=== PATIENT | female | born 1970 | race Caucasian/White ===

== ENCOUNTER 2020-04-16 13:50 | Inpatient (IN) ==
[2020-04-16 14:41] LABS: Basophils % 0.2 %; Eosinophils % 0.6 %; Hematocrit 42.2 % (35.3-44.9); Hemoglobin 13.3 g/dL (11.5-15.4); Immature Granulocytes % 0.6 % (0-4); Lymphocytes # 1.1 K/mcL (0.6-4.6); Lymphocytes % 23.1 %; Mean Corpuscular HGB Conc 31.5 g/dL (31.6-35.5); Mean Corpuscular Volume 85.6 fL (83.0-100.0); Mean Platelet Volume 10.3 fL (9.4-12.4); Monocytes # 0.5 K/mcL (0.0-1.3); Monocytes % 9.3 %; Neutrophils # 3.3 K/mcL (1.6-8.9); Platelet Count 241 K/mcL (140-400); Red Blood Count 4.93 M/mcL (3.82-4.97); Red Cell Distribution Width 16.2 % (11.5-14.5); Segmented Neutrophils % 66.2 %; White Blood Count 4.9 K/mcL (4.3-11.1)
[2020-04-16] MEDS ORDERED: Dexamethasone Sodium Phos/PF 10 MG/ML VIAL IVP ONE (14:45)
[2020-04-16 14:48] LABS: Prothrombin Time 11.9 Seconds (9.4-12.1)
[2020-04-16 14:50] LABS: Activated Partial Thrombo Time 26.2 Seconds (26.0-36.0)
[2020-04-16 15:03] LABS: Alanine Aminotransferase 20 Units/L (7-52); Albumin 4.4 g/dL (3.5-5.7); Albumin/Globulin Ratio 1.4 (1.1-2.2); Alkaline Phosphatase 83 Units/L (34-104); Aspartate Amino Transferase 17 Units/L (13-39); BUN/Creatinine Ratio 12 (6-26); Bilirubin,Direct 0.1 mg/dL (0.0-0.2); Bilirubin,Indirect 0.5 mg/dL (0.0-1.0); Bilirubin,Total 0.6 mg/dL (0.3-1.0); Blood Urea Nitrogen 8 mg/dL (6-20); C-Reactive Protein 31 mg/L (Less than 10); Calcium 9.1 mg/dL (8.6-10.3); Carbon Dioxide 30 mEq/L (23-29); Chloride 99 mEq/L (98-107); Globulin 3.2 g/dL (2.4-3.5); Glucose 92 mg/dL (70-105); Lactate Dehydrogenase 173 Units/L (140-271); Magnesium 2.4 mg/dL (1.6-2.6); Osmolality,Calculated 284 (280-300); Phosphorous 2.6 mg/dL (2.7-4.5); Potassium 3.1 mEq/L (3.5-5.1); Sodium 138 mEq/L (136-145); Total Protein 7.6 g/dL (6.4-8.9); Troponin I < 0.03 ng/mL (< 0.04); eGFR For African Americans > 60 (> 60); eGFR For Non-African Americans > 60 (> 60)
[2020-04-16 15:21] LABS: Ferritin 85 ng/mL (10-120)
[2020-04-16] MEDS ORDERED: Ondansetron 4 MG/2 ML VIAL IVP PRN (15:28)
[2020-04-16] MEDS ORDERED: Naloxone 0.4 MG/ML INJ IVP PRN (15:28)
[2020-04-16] MEDS: Furosemide 40 MG/4 ML VIAL IVP SCH (20:50)
[2020-04-16] MEDS: Ipratropium 1 PUFF INHALER IH SCH (21:55)
[2020-04-16] MEDS ORDERED: Melatonin 3 MG TABLET PO SCH (22:45)
[2020-04-17] MEDS: Ipratropium 1 PUFF INHALER IH SCH ×4 (04:11→21:27)
[2020-04-17 05:23] LABS: VBG HCO3 27 mEq/L (21-27); VBG PCO2 38 mmHg (41-51); VBG PH 7.46 pH Units (7.32-7.42); VBG PO2 128 mmHg (25-50)
[2020-04-17 05:25] LABS: Basophils % 0.2 %; Lymphocytes # 0.8 K/mcL (0.6-4.6); Lymphocytes % 20.1 %; Mean Corpuscular HGB Conc 31.7 g/dL (31.6-35.5); Mean Corpuscular Hemoglobin 27.1 pg (28.0-33.3); Mean Corpuscular Volume 85.4 fL (83.0-100.0); Mean Platelet Volume 10.8 fL (9.4-12.4); Monocytes # 0.3 K/mcL (0.0-1.3); Monocytes % 6.1 %; Platelet Count 275 K/mcL (140-400); Red Cell Distribution Width 15.9 % (11.5-14.5); Segmented Neutrophils % 72.6 %; White Blood Count 4.1 K/mcL (4.3-11.1)
[2020-04-17 05:40] LABS: Fibrinogen 384 mg/dL (169-393)
[2020-04-17 05:42] LABS: D-Dimer 831 ng/mLFEU (0-500)
[2020-04-17 05:44] LABS: BUN/Creatinine Ratio 16 (6-26); Blood Urea Nitrogen 11 mg/dL (6-20); Calcium 9.6 mg/dL (8.6-10.3); Carbon Dioxide 25 mEq/L (23-29); Chloride 99 mEq/L (98-107); Glucose 142 mg/dL (70-105); Magnesium 2.3 mg/dL (1.6-2.6); Osmolality,Calculated 284 (280-300); Potassium 3.4 mEq/L (3.5-5.1); Sodium 136 mEq/L (136-145); eGFR For African Americans > 60 (> 60); eGFR For Non-African Americans > 60 (> 60)
[2020-04-17] MEDS: *HR* Enoxaparin 40 MG/0.4 ML SYRINGE SQ SCH (05:49)
[2020-04-17] MEDS: Acetaminophen 325 MG TABLET PO PRN ×2 (05:49→17:43)
[2020-04-17] MEDS ORDERED: Dexamethasone Sodium Phos/PF 10 MG/ML VIAL IVP SCH (09:00)
[2020-04-17] MEDS: Dexamethasone Sodium Phos/PF 10 MG/ML VIAL IVP SCH (09:24)
[2020-04-17] MEDS: Spironolactone 25 MG TABLET PO SCH (09:24)
[2020-04-17] MEDS: Furosemide 40 MG/4 ML VIAL IVP SCH ×2 (09:24→20:09)
[2020-04-17] MEDS ORDERED: Levothyroxine Sodium 100 MCG VIAL IVP ONE (12:43)
[2020-04-17] MEDS: Pregabalin 50 MG CAPSULE PO SCH (20:09)
[2020-04-18] MEDS: Ipratropium 1 PUFF INHALER IH SCH ×4 (03:51→21:47)
[2020-04-18] MEDS: Acetaminophen 325 MG TABLET PO PRN (05:10)
[2020-04-18 05:17] LABS: Basophils % 0.3 %; Hematocrit 43.7 % (35.3-44.9); Hemoglobin 13.4 g/dL (11.5-15.4); Immature Granulocytes % 0.7 % (0-4); Lymphocytes # 1.4 K/mcL (0.6-4.6); Lymphocytes % 19.4 %; Mean Corpuscular HGB Conc 30.7 g/dL (31.6-35.5); Mean Corpuscular Hemoglobin 26.5 pg (28.0-33.3); Mean Corpuscular Volume 86.5 fL (83.0-100.0); Mean Platelet Volume 10.4 fL (9.4-12.4); Monocytes # 0.5 K/mcL (0.0-1.3); Monocytes % 7.2 %; Neutrophils # 5.3 K/mcL (1.6-8.9); Platelet Count 321 K/mcL (140-400); Red Blood Count 5.05 M/mcL (3.82-4.97); Red Cell Distribution Width 16.3 % (11.5-14.5); Segmented Neutrophils % 72.4 %
[2020-04-18 05:18] LABS: Fibrinogen 347 mg/dL (169-393)
[2020-04-18 05:19] LABS: White Blood Count 7.3 K/mcL (4.3-11.1)
[2020-04-18 05:21] LABS: D-Dimer 601 ng/mLFEU (0-500)
[2020-04-18 05:39] LABS: BUN/Creatinine Ratio 27 (6-26); Blood Urea Nitrogen 22 mg/dL (6-20); Calcium 9.6 mg/dL (8.6-10.3); Carbon Dioxide 28 mEq/L (23-29); Chloride 101 mEq/L (98-107); Glucose 128 mg/dL (70-105); Magnesium 2.4 mg/dL (1.6-2.6); Osmolality,Calculated 295 (280-300); Potassium 3.4 mEq/L (3.5-5.1); Sodium 140 mEq/L (136-145); eGFR For African Americans > 60 (> 60); eGFR For Non-African Americans > 60 (> 60)
[2020-04-18 05:50] LABS: Thyroid Stimulating Hormone 37.606 mcIU/mL (0.340-5.600)
[2020-04-18 05:52] LABS: Triiodothyronine (T3) Free 2.41 pg/mL (2.50-3.90)
[2020-04-18] MEDS: *HR* Enoxaparin 40 MG/0.4 ML SYRINGE SQ SCH (09:18)
[2020-04-18] MEDS: Pregabalin 50 MG CAPSULE PO SCH ×2 (09:19→20:36)
[2020-04-18] MEDS: Furosemide 40 MG/4 ML VIAL IVP SCH ×2 (09:19→20:37)
[2020-04-18] MEDS: Spironolactone 25 MG TABLET PO SCH (09:19)
[2020-04-18] MEDS: Dexamethasone Sodium Phos/PF 10 MG/ML VIAL IVP SCH (10:12)
[2020-04-19] MEDS: Ipratropium 1 PUFF INHALER IH SCH ×3 (03:59→17:04)
[2020-04-19] MEDS: *HR* Enoxaparin 40 MG/0.4 ML SYRINGE SQ SCH (05:00)
[2020-04-19 05:22] LABS: Basophils % 0.2 %; Hematocrit 46.4 % (35.3-44.9); Hemoglobin 14.3 g/dL (11.5-15.4); Immature Granulocytes % 0.8 % (0-4); Lymphocytes # 2.1 K/mcL (0.6-4.6); Lymphocytes % 21.8 %; Mean Corpuscular HGB Conc 30.8 g/dL (31.6-35.5); Mean Corpuscular Hemoglobin 26.7 pg (28.0-33.3); Mean Corpuscular Volume 86.6 fL (83.0-100.0); Monocytes # 0.7 K/mcL (0.0-1.3); Monocytes % 7.7 %; Neutrophils # 6.7 K/mcL (1.6-8.9); Platelet Count 359 K/mcL (140-400); Red Blood Count 5.36 M/mcL (3.82-4.97); Red Cell Distribution Width 16.1 % (11.5-14.5); Segmented Neutrophils % 69.5 %; White Blood Count 9.7 K/mcL (4.3-11.1)
[2020-04-19 05:27] LABS: Fibrinogen 295 mg/dL (169-393)
[2020-04-19 05:29] LABS: D-Dimer 449 ng/mLFEU (0-500)
[2020-04-19 05:43] LABS: BUN/Creatinine Ratio 28 (6-26); Blood Urea Nitrogen 22 mg/dL (6-20); Carbon Dioxide 29 mEq/L (23-29); Chloride 99 mEq/L (98-107); Glucose 116 mg/dL (70-105); Magnesium 2.3 mg/dL (1.6-2.6); Osmolality,Calculated 294 (280-300); Potassium 3.5 mEq/L (3.5-5.1); Sodium 140 mEq/L (136-145); eGFR For African Americans > 60 (> 60); eGFR For Non-African Americans > 60 (> 60)
[2020-04-19] MEDS: Dexamethasone Sodium Phos/PF 10 MG/ML VIAL IVP SCH (07:49)
[2020-04-19] MEDS: Spironolactone 25 MG TABLET PO SCH (07:49)
[2020-04-19] MEDS: Pregabalin 50 MG CAPSULE PO SCH (07:50)
[2020-04-19] MEDS: Furosemide 40 MG/4 ML VIAL IVP SCH (07:50)
[2020-04-19 12:11] VITALS: BP 118/78
== END 2020-04-19 18:28 | disposition critical access hospital (66) ==
LOC: SUATTDRO → EMEROOARM 13:50 → 2NENU 13:50 → SUATTDRO 15:35 → 2NENU 16:36 → 3BNU 04-17 21:14
PROVIDERS: ADMIT Pharmacist; ATTEND Pharmacist